=== PATIENT | female | born 1965 | race Caucasian/White ===

== ENCOUNTER 2023-01-27 06:55 | Day surgery (SDC) | payer OTHER ==
[2023-01-25 16:31] VITALS: BP 157/92
[~2023-01-27] VITALS: Ht 157.5 cm; Wt 64.5 kg
[~2023-01-27 06:55] MED LIST: CIPRO500 MG PO; COZAAR25 MG PO; FLAGYL500 MG PO; NORCO 5-325 TA1 EACH PO; REGLAN10 MG PO; ULTRAM50 MG PO
[2023-01-27 07:14] VITALS: BP 139/85
--- NOTE | 2023-01-27 07:35 | NUR ---
DS ROUNDS. 15 MINUTES. PROVIDED HOSPITALITY. PROVIDED PRAYER. PT AND EXPRESSED GRATITUDE.
--- NOTE | 2023-01-27 08:48 | NUR ---
01/27/23 0848 Sheri Bunn 0837: PATIENT ARRIVES IN PACU AWAKE AND TALKING WITH THE NURSES. SHE IS ACTIVELY PASSING FLATUS AND IS EDUCATED ON CONTINUING TO DO SO. SHE VERBALIZES UNDERSTANDING.
[2023-01-27 09:01] VITALS: BP 125/84
--- NOTE | 2023-01-27 10:01 | OR ---
[facility] [address], [place] [address] Signed DATE OF OPERATION: 01/27/2023 SURGEON: Dontae Coughlin MD PREOPERATIVE DIAGNOSES: 1. Diverticulosis. 2. Minimal internal hemorrhoids. POSTOPERATIVE DIAGNOSES: 1. Moderate left-sided diverticulosis. 2. Minimal internal hemorrhoids. PROCEDURE: Colonoscopy without biopsy. ESTIMATED BLOOD LOSS: None. INDICATIONS: Santi is a 57-year-old female, asked to see me for followup colonoscopy. I helped her back in 2009 at the age of 44. At that time, she was anemic and had change in bowel habits with constipation and diarrhea. She is known to have some internal hemorrhoids as well. We did see some diverticulosis. She had done well with Versed and fentanyl. We asked her to follow up in 10 years. Shortly after that, she talked about her hysterectomy as well as bladder suspension. For some reason, she feels like the surgery set off for diverticular disease. She also talked about recurrent urinary tract infections. She has been treated empirically with antibiotics. I have went through quite a few CT scans from 2010, 2015 which were unremarkable. Back in 2017, she did have some diverticulitis in the distal portion of the descending colon. Her white count had been normal. Cipro and Flagyl seemed to work out well for her. She thinks the diverticulitis episodes have now cleared. She thinks she has had seven episodes in all. She has no family history of colon cancer or polyps. She does not have any lower GI complaints currently. She talked about tearing when she delivered her daughter vaginally. She said they sewed it together posteriorly, but not anteriorly. She seems to have good sphincter control based on her history. In the office, I had given her a pamphlet on colonoscopy. We have reviewed the nature of the test. There is risk including, but not limited to gas bloating, crampy abdominal pain, bleeding, perforation requiring surgery, and missed diagnosis. We also reviewed the written instructions for the bowel prep line by line. In addition, she has quite a number of different drug allergies. We talked about the Versed and fentanyl. She was very nervous in that Electronically Signed By: DONTAE COUGHLIN MD 01/27/23 1001 PATIENT NAME: SANTI BUSH OPERATIVE REPORT DATE OF : 65 REPORT #: [id number] PHYSICIAN: DONTAE COUGHLIN MD PCP: KIRIT AVILA REPORT IS CONFIDENTIAL AND NOT TO BE RELEASED WITHOUT AUTHORIZATION [facility] [address] [place] [id number] Signed regard. She asked for propofol infusion, this certainly seems reasonable. We also know that she injured her neck while skating. She is also known to be a prediabetic. She understands an adult person has to take her home afterwards. She had expressed understanding and wished to proceed. DESCRIPTION OF PROCEDURE: Santi was taken into our endoscopy suite and placed in the left lateral decubitus position. She was given monitored anesthesia care with propofol infusion per our nurse outside sales representative insurance. A digital rectal exam was performed. She has good sphincter tone. No external hemorrhoids. The sphincter seemed to be intact circumferentially. There were no masses. The adult colonoscope was introduced and advanced under direct visualization of camera into the cecum itself. Her prep was quite good. We could easily see the appendiceal orifice and the ileocecal valve. The scope was then slowly withdrawn. We took pictures throughout for photodocumentation. She does have some diverticula in the sigmoid and left colon. They were moderate in size, few in number and scattered about. No polyps. Once in the rectum, the scope was retroflexed and she has very minimal internal hemorrhoid tissue. After this, the gas was suctioned out, colonoscope removed. Santi tolerated the procedure quite well. RECOMMENDATIONS: Santi can follow up in 10 years for repeat colonoscopy. Dontae Coughlin MD ALB/MODL /[id number] cc: MD Christopher Gilliland, Nurse Practitioner Copies: DONTAE COUGHLIN MD ~ Electronically Signed By: DONTAE COUGHLIN MD 01/27/23 1001 PATIENT NAME: SANTI BUSH OPERATIVE REPORT DATE OF : 65 REPORT #: [id number] PHYSICIAN: DONTAE COUGHLIN MD PCP: KIRIT AVILA SENIOR LABEL SPECIALIST REPORT IS CONFIDENTIAL AND NOT TO BE RELEASED WITHOUT AUTHORIZATION
== END 2023-01-27 09:05 | disposition home or self-care (01) ==
LOC: OPS 06:55 → DS 06:55 → OPS 08:15
PROVIDERS: ATTEND Colon & Rectal Surgery
PROC: 0DJD8ZZ Inspection of Lower Intestinal Tract, Via Natural or Artificial Opening Endoscopic (ICD-10-PCS; principal; 2023-01-27 08:15)
DX: K57.30 Diverticulosis of large intestine without perforation or abscess without bleeding (principal); K64.8 Other hemorrhoids; I10 Essential (primary) hypertension; M85.80 Other specified disorders of bone density and structure, unspecified site; E66.3 Overweight; Z68.25 Body mass index [BMI] 25.0-25.9, adult; E78.5 Hyperlipidemia, unspecified; F41.9 Anxiety disorder, unspecified; R73.03 Prediabetes
CPT/HCPCS: 00811; J2001; J2704; J7121